=== PATIENT | male | born 1970 | race Caucasian/White ===

== ENCOUNTER 2016-08-22 13:01 | Emergency (ER) | payer OTHER ==
[2016-08-22 13:58] LABS: BASOPHIL 0.2 % (0-2); EOSINOPHIL 0.2 % (0-5); HCT 45.8 % (42.0-52.0); HGB 15.7 g/dl (13.2-18.0); LYMPHOCYTE 18.2 % (15-48); MCHC 34.3 g/dL (32.0-36.0); MCV 87.4 fL (78.0-100.0); MONOCYTE 11.4 % (0-12); MPV 8.8 fL (6.0-9.5); PLT 159 K/uL (150-400); RBC 5.24 M/uL (4.70-6.00); RDW 13.6 % (11.5-14.0); WBC 6.3 K/uL (4.0-10.5)
[2016-08-22 14:06] LABS: LACTIC ACID 1.7 mmol/L (0.5-2.2)
[2016-08-22 14:09] LABS: ALBUMIN 4.4 g/dL (3.5-5.0); BILIRUBIN - TOTAL 1.1 mg/dL (0.1-1.0); CREATININE 1.2 mg/dL (0.7-1.2); GLOBULIN (CALCULATION) 3.3 g/dL (2.2-4.2); POTASSIUM 4.3 mmol/L (3.5-5.1); TOTAL PROTEIN 7.7 g/dL (6.4-8.3)
[2016-08-22 15:30] LABS: BILIRUBIN NEGATIVE (NEGATIVE); BLOOD NEGATIVE Ery/uL (NEGATIVE); CLARITY CLEAR (CLEAR); COLOR YELLOW (YELLOW); GLUCOSE (U) 3+ mg/dL (NORMAL); KETONE (U) NEGATIVE (NEGATIVE); LEUKOCYTES NEGATIVE Leu/uL (NEGATIVE); NITRITE NEGATIVE (NEGATIVE); PROTEIN NEGATIVE (NEGATIVE); SPECIFIC GRAVITY <=1.005 (1.001-1.030)
== END 2016-08-22 16:03 | disposition home or self-care (01) ==
LOC: FER 13:01
PROVIDERS: Nurse Practitioner
DX: J10.1 Influenza due to other identified influenza virus with other respiratory manifestations (principal); E11.9 Type 2 diabetes mellitus without complications; I10 Essential (primary) hypertension; Z79.899 Other long term (current) drug therapy
CPT/HCPCS: 36415; 71020; 80053; 81003; 83605; 85025; 87804; 87899; J2405